=== PATIENT | male | born 1955 | race Two or more races ===

== ENCOUNTER 2022-11-24 08:14 | Inpatient (IN) | payer OTHER ==
[2022-11-24] VITALS (45 sets, daily range): BP systolic 84–160; BP diastolic 39–92; PULSE 89–114; RESP 14–39; TEMP 97.7–98.8; O2SAT 87–100
[~2022-11-24] VITALS: Ht 170.2 cm; Wt 103.1 kg
[2022-11-24] MEDS ORDERED: SODIUM BICARBONATE 8.4 % INJ 50ML VIAL IV ONE (08:40)
[2022-11-24] MEDS ORDERED: EPINEPHrine HCL 250 ML IV ONE (08:45)
[2022-11-24] MEDS ORDERED: NOREPINEPHRINE 8 MG/250ML KIT 250 ML IV ONE (08:50)
[2022-11-24] MEDS ORDERED: PANTOPRAZOLE 80 MG in SODIUM CHL 0.9% 100 ML IV ONE (09:00)
[2022-11-24] MEDS: NOREPINEPHRINE 8 MG/250ML KIT 250 ML IV SCH ×3 (09:10→16:16)
[2022-11-24] MEDS ORDERED: EPINEPHrine HCL 250 ML IV SCH (09:15)
[2022-11-24 09:18] LABS: Hematocrit 14.5 % (41.0-53.0); Mean Corpuscular Hemoglobin 29.3 pg (28.0-32.0); Mean Corpuscular Hgb Conc. 30.2 g/dL (32.0-36.0); Red Cell Distribution Width 17.2 % (11.8-14.3)
[2022-11-24 09:23] LABS: Hemoglobin 4.4 g/dL (13.5-17.5)
[2022-11-24 09:24] LABS: Basophils % (manual) 0 (0.0-2.0); Blast Cells 0; Myelocytes % 0; Promyelocytes % 0; Reactive Lymphocytes 0
[2022-11-24 09:31] LABS: Albumin 1.2 g/dL (3.4-5.0); Calcium 7.6 mg/dL (8.5-10.1); Potassium 5.2 mmol/L (3.5-5.1)
[2022-11-24 09:33] LABS: INR 1.55 (0.9-1.15); Partial Thromboplastin Time 43.9 SEC (24.5-34.5)
[2022-11-24 09:34] LABS: BUN/Creatinine Ratio 12.5 (10.0-20.0); Bilirubin, Total 0.7 mg/dL (0.2-1.0); Total Protein 5.5 g/dL (6.4-8.2)
[2022-11-24 09:45] LABS: Urine Bacteria NONE SEEN /hpf (None Seen); Urine Blood Negative /uL (Negative); Urine Mucus FEW (None Seen); Urine Specific Gravity 1.012 (1.001-1.035); Urine WBC 2 /hpf (0 - 3)
[2022-11-24] MEDS: OCTREOTIDE ACETATE 500 MCG in SODIUM CHL 0.9% 99 ML IV SCH ×2 (09:55→20:15)
[2022-11-24] MEDS ORDERED: AZITHROMYCIN 500MG/ 250ML 250 ML IV ONE (10:00)
[2022-11-24] MEDS ORDERED: PIPERACILLIN-TAZOB 3.375GM 100 ML IV ONE (10:00)
[2022-11-24] MEDS ORDERED: FUROSEMIDE 40 MG/4 ML VIAL IV ONE (10:00)
[2022-11-24] MEDS ORDERED: ALBUTEROL SULF 2.5 MG/0.5ML(0.5%) NEB SOLN NEB ONE (10:15)
[2022-11-24] MEDS ORDERED: SODIUM ZIRCONIUM CYCL 10 GM PAK PO ONE (10:15)
[2022-11-24] MEDS ORDERED: CALCIUM GLUC 1,000mg/50ml-NS 50 ML IV ONE (10:15)
[2022-11-24] MEDS ORDERED: SODIUM BICARBONATE 8.4% INJ 50ML SYRINGE IV ONE (10:15)
[2022-11-24 10:37] LABS: Lactic Acid w/Reflex 13.6 mmol/L (0.4-2.0)
[2022-11-24] MEDS ORDERED: MIDAZOLAM DRIP 50 mg/50mL 50 ML IV ONE (10:46)
[2022-11-24] MEDS: MIDAZOLAM DRIP 50 mg/50mL 50 ML IV SCH ×2 (10:50→21:49)
[2022-11-24 12:08] LABS: Band Neutrophils % (manual) 9; Eosinophils % (manual) 1 (0-7); Lymphocytes % (manual) 13 (10.0-50.0); Metamyelocytes % 1; Monocytes % (manual) 5 (0-12)
[2022-11-24] MEDS ORDERED: DEXTROSE (50%) 50ML SYRG IV PRN (13:15)
[2022-11-24] MEDS ORDERED: ONDANSETRON HCL 4 MG/2 ML VIAL IV PRN (13:15)
[2022-11-24] MEDS ORDERED: VANCOMYCIN PER PHARMACY 0 MG IV SCH (13:30)
[2022-11-24] MEDS ORDERED: VANCOMYCIN 1GM/250ML 250 ML IV ONE (13:45)
[2022-11-24 15:36] LABS: Basophils # (auto) 0.2 10 ^3/uL (0-0.2); Eosinophils # (auto) 0 10 ^3/uL (0-0.8); Mean Corpuscular Volume 89.2 fL (80.0-100.0)
[2022-11-24 15:39] LABS: Basophils % (auto) 0.6 % (0.0-2.0); Eosinophils % (auto) 0.1 % (0.0-7.0); Hematocrit 23.5 % (41.0-53.0); Hemoglobin 7.6 g/dL (13.5-17.5); Lymphocytes # (auto) 0.7 10 ^3/uL (0.4-5.4); Lymphocytes % (auto) 2.2 % (10.0-50.0); Mean Corpuscular Hemoglobin 28.7 pg (28.0-32.0); Mean Corpuscular Hgb Conc. 32.2 g/dL (32.0-36.0); Monocytes # (auto) 0.8 10 ^3/uL (0-1.3); Monocytes % (auto) 2.6 % (0.0-12.0); Neutrophils # (auto) 28.7 10 ^3/uL (1.6-8.6); Neutrophils % (auto) 94.5 % (37.0-80.0); Red Blood Cells 2.64 10^6/uL (4.5-5.90)
[2022-11-24 15:51] LABS: White Blood Cell 30.4 10^3/uL (4.4-10.8)
[2022-11-24 15:57] LABS: Albumin 1.5 g/dL (3.4-5.0); Calcium 7.4 mg/dL (8.5-10.1); Magnesium 2.4 mg/dL (1.6-2.6); Potassium 4.1 mmol/L (3.5-5.1); Potassium 4.4 mmol/L (3.5-5.1)
[2022-11-24 15:59] LABS: BUN/Creatinine Ratio 13.4 (10.0-20.0); Phosphorus 5.4 mg/dL (2.5-4.90)
[2022-11-24 16:02] LABS: Bilirubin, Total 1.5 mg/dL (0.2-1.0); Total Protein 5.5 g/dL (6.4-8.2)
[2022-11-24 16:11] LABS: Lactic Acid w/Reflex 7.5 mmol/L (0.4-2.0)
[2022-11-24 16:33] LABS: INR 1.4 (0.9-1.15)
[2022-11-24] MEDS: PHENYLEPHRINE IV 250 ML IV SCH (17:45)
[2022-11-24] MEDS: fentaNYL Drip 2500mCg/250mlNS 250 ML IV SCH (17:45)
[2022-11-24] MEDS ORDERED: fentaNYL Drip 2500mCg/250mlNS 250 ML IV ONE (17:48)
[2022-11-24] MEDS: ACCU-CHEK COMFORT CURVE STRIP VI SCH (18:00)
[2022-11-24] MEDS: InsuLIN REG 1unit/0.01ml Soln (100units/ml) SC SCH (18:00)
[2022-11-24 18:18] LABS: Hemoglobin 7.4 g/dL (13.5-17.5)
[2022-11-24 18:21] LABS: Hematocrit 22.8 % (41.0-53.0)
[2022-11-24] MEDS ORDERED: FUROSEMIDE 100 MG/10ML VIAL IV ONE (19:15)
[2022-11-24] MEDS: PANTOPRAZOLE 40mg/50ML NS AE 50 ML IV SCH (20:15)
[2022-11-24] MEDS: PIPERACILLIN-TAZOB 2.25GM 50 ML IV SCH (21:51)
[2022-11-25] VITALS (108 sets, daily range): BP systolic 86–127; BP diastolic 44–64; PULSE 72–117; RESP 13–31; TEMP 98.1–99; O2SAT 85–100
[2022-11-25] MEDS: ACCU-CHEK COMFORT CURVE STRIP VI SCH ×4 (00:06→17:24)
[2022-11-25] MEDS: PANTOPRAZOLE 40mg/50ML NS AE 50 ML IV SCH ×5 (00:08→20:49)
[2022-11-25 00:46] LABS: Hematocrit 22.2 % (41.0-53.0); Hemoglobin 7.2 g/dL (13.5-17.5)
[2022-11-25] MEDS: PHENYLEPHRINE IV 250 ML IV SCH ×3 (02:05→13:33)
[2022-11-25 04:42] LABS: Mean Corpuscular Volume 87.6 fL (80.0-100.0)
[2022-11-25 04:43] LABS: Hematocrit 26.2 % (41.0-53.0); Hemoglobin 8.8 g/dL (13.5-17.5); Mean Corpuscular Hemoglobin 29.6 pg (28.0-32.0); Mean Corpuscular Hgb Conc. 33.8 g/dL (32.0-36.0); Red Blood Cells 2.99 10^6/uL (4.5-5.90); Red Cell Distribution Width 17.4 % (11.8-14.3)
[2022-11-25 05:13] LABS: Basophils % (manual) 0 (0.0-2.0); Blast Cells 0; Eosinophils % (manual) 0 (0-7); Myelocytes % 0; Promyelocytes % 0; Reactive Lymphocytes 0
[2022-11-25 05:31] LABS: Potassium 4.5 mmol/L (3.5-5.1)
[2022-11-25 05:35] LABS: Albumin 1.4 g/dL (3.4-5.0); BUN/Creatinine Ratio 14.5 (10.0-20.0); Calcium 7.7 mg/dL (8.5-10.1)
[2022-11-25 05:37] LABS: Total Protein 5.7 g/dL (6.4-8.2)
[2022-11-25] MEDS: OCTREOTIDE ACETATE 500 MCG in SODIUM CHL 0.9% 99 ML IV SCH ×2 (05:43→13:33)
[2022-11-25] MEDS: MIDAZOLAM DRIP 50 mg/50mL 50 ML IV SCH ×4 (05:45→20:50)
[2022-11-25] MEDS: InsuLIN REG 1unit/0.01ml Soln (100units/ml) SC SCH ×4 (05:45→17:24)
[2022-11-25] MEDS ORDERED: SODIUM CHL 0.9% 1000 ML BAG XX ONE (07:00)
[2022-11-25 07:21] LABS: Band Neutrophils % (manual) 31; Lymphocytes % (manual) 1 (10.0-50.0); Monocytes % (manual) 1 (0-12)
[2022-11-25 07:22] LABS: Metamyelocytes % 1
[2022-11-25] MEDS ORDERED: VANCOMYCIN 1GM/250ML 250 ML IV ONE (09:30)
[2022-11-25] MEDS: PIPERACILLIN-TAZOB 2.25GM 50 ML IV SCH ×2 (09:46→21:54)
[2022-11-25 12:18] LABS: Hematocrit 25.6 % (41.0-53.0); Hemoglobin 8.4 g/dL (13.5-17.5)
[2022-11-25] MEDS: fentaNYL Drip 2500mCg/250mlNS 250 ML IV SCH (14:01)
[2022-11-25 18:44] LABS: Hemoglobin 8.7 g/dL (13.5-17.5)
[2022-11-25 18:47] LABS: Hematocrit 26.7 % (41.0-53.0)
[2022-11-25] MEDS ORDERED: EPOETIN ALFA-EPBX 10,000 UNIT/1ML VIAL SC ONE (21:00)
[2022-11-25] MEDS: NOREPINEPHRINE 8 MG/250ML KIT 250 ML IV SCH (21:54)
[2022-11-26] VITALS (106 sets, daily range): BP systolic 80–128; BP diastolic 40–62; PULSE 65–121; RESP 14–27; TEMP 98.1–100; O2SAT 92–100
[2022-11-26] MEDS: ACCU-CHEK COMFORT CURVE STRIP VI SCH ×4 (00:36→17:58)
[2022-11-26] MEDS: PANTOPRAZOLE 40mg/50ML NS AE 50 ML IV SCH ×5 (01:00→21:09)
[2022-11-26] MEDS: OCTREOTIDE ACETATE 500 MCG in SODIUM CHL 0.9% 99 ML IV SCH ×3 (01:59→21:09)
[2022-11-26] MEDS: PHENYLEPHRINE IV 250 ML IV SCH ×3 (03:05→19:45)
[2022-11-26] MEDS: MIDAZOLAM DRIP 50 mg/50mL 50 ML IV SCH ×4 (04:18→20:00)
[2022-11-26] MEDS: fentaNYL Drip 2500mCg/250mlNS 250 ML IV SCH ×2 (04:19→18:44)
[2022-11-26] MEDS: InsuLIN REG 1unit/0.01ml Soln (100units/ml) SC SCH ×4 (06:00→17:58)
[2022-11-26 08:22] LABS: Hematocrit 24.7 % (41.0-53.0); Hemoglobin 8.1 g/dL (13.5-17.5); Mean Corpuscular Hemoglobin 29.3 pg (28.0-32.0); Mean Corpuscular Hgb Conc. 32.8 g/dL (32.0-36.0); Mean Corpuscular Volume 89.6 fL (80.0-100.0); Red Blood Cells 2.75 10^6/uL (4.5-5.90); Red Cell Distribution Width 18.1 % (11.8-14.3); White Blood Cell 25.2 10^3/uL (4.4-10.8)
[2022-11-26 08:25] LABS: Basophils % (manual) 0 (0.0-2.0); Blast Cells 0; Metamyelocytes % 0; Myelocytes % 0; Promyelocytes % 0; Reactive Lymphocytes 0
[2022-11-26 08:39] LABS: Albumin 1.3 g/dL (3.4-5.0); Calcium 7.6 mg/dL (8.5-10.1); Potassium 4.4 mmol/L (3.5-5.1)
[2022-11-26 08:43] LABS: BUN/Creatinine Ratio 13.8 (10.0-20.0); Bilirubin, Total 0.7 mg/dL (0.2-1.0); Total Protein 5.8 g/dL (6.4-8.2)
[2022-11-26] MEDS ORDERED: VANCOMYCIN 500 MG in D5W 5% 100 ML IV ONE (09:00)
[2022-11-26] MEDS: PIPERACILLIN-TAZOB 2.25GM 50 ML IV SCH ×2 (11:44→22:19)
[2022-11-26 12:27] LABS: Band Neutrophils % (manual) 3; Eosinophils % (manual) 2 (0-7); Lymphocytes % (manual) 5 (10.0-50.0); Monocytes % (manual) 7 (0-12)
[2022-11-27] VITALS (109 sets, daily range): BP systolic 86–124; BP diastolic 43–65; PULSE 60–72; RESP 14–33; TEMP 97.6–98.6; O2SAT 99–100
[2022-11-27] MEDS: ACCU-CHEK COMFORT CURVE STRIP VI SCH ×5 (00:06→23:30)
[2022-11-27] MEDS: MIDAZOLAM DRIP 50 mg/50mL 50 ML IV SCH ×5 (01:00→21:11)
[2022-11-27] MEDS: PANTOPRAZOLE 40mg/50ML NS AE 50 ML IV SCH ×5 (01:45→20:41)
[2022-11-27] MEDS: PHENYLEPHRINE IV 250 ML IV SCH ×3 (03:29→20:24)
[2022-11-27 03:51] LABS: Hematocrit 23.5 % (41.0-53.0); Hemoglobin 7.7 g/dL (13.5-17.5); Mean Corpuscular Hemoglobin 29.4 pg (28.0-32.0); Mean Corpuscular Hgb Conc. 32.7 g/dL (32.0-36.0); Red Blood Cells 2.61 10^6/uL (4.5-5.90); Red Cell Distribution Width 17.5 % (11.8-14.3); White Blood Cell 25.3 10^3/uL (4.4-10.8)
[2022-11-27 03:53] LABS: Basophils % (manual) 0 (0.0-2.0); Blast Cells 0; Metamyelocytes % 0; Myelocytes % 0; Promyelocytes % 0; Reactive Lymphocytes 0
[2022-11-27 04:08] LABS: Albumin 1.1 g/dL (3.4-5.0); Calcium 7.4 mg/dL (8.5-10.1)
[2022-11-27 04:12] LABS: Bilirubin, Total 0.8 mg/dL (0.2-1.0); Total Protein 5.4 g/dL (6.4-8.2)
[2022-11-27 05:33] LABS: Band Neutrophils % (manual) 7; Eosinophils % (manual) 2 (0-7); Lymphocytes % (manual) 2 (10.0-50.0); Monocytes % (manual) 4 (0-12)
[2022-11-27] MEDS: NOREPINEPHRINE 8 MG/250ML KIT 250 ML IV SCH (05:44)
[2022-11-27] MEDS: InsuLIN REG 1unit/0.01ml Soln (100units/ml) SC SCH ×5 (05:45→23:33)
[2022-11-27] MEDS: OCTREOTIDE ACETATE 500 MCG in SODIUM CHL 0.9% 99 ML IV SCH ×2 (05:52→15:46)
[2022-11-27] MEDS ORDERED: VANCOMYCIN PER PHARMACY 0 MG IV SCH (07:45)
[2022-11-27] MEDS: fentaNYL Drip 2500mCg/250mlNS 250 ML IV SCH ×2 (08:42→23:29)
[2022-11-27] MEDS: CEFTRIAXONE SODIUM 2 GM in D5W 5% 100 ML IV SCH (10:57)
[2022-11-27] MEDS ORDERED: TPN PER PHARMACY 0 ML IV SCH (13:15)
[2022-11-27] MEDS ORDERED: DEXTROSE (50%) 50ML SYRG IV SCH (14:00)
[2022-11-27 14:27] LABS: Magnesium 2.4 mg/dL (1.6-2.6)
[2022-11-27] MEDS ORDERED: AMINO ACID INFUSION IN D10W 1,000 ML IV NR (20:00)
[2022-11-28] VITALS (101 sets, daily range): BP systolic 96–145; BP diastolic 46–66; PULSE 60–76; RESP 11–19; TEMP 97.5–98.6; O2SAT 99–100
[2022-11-28] MEDS: MIDAZOLAM DRIP 50 mg/50mL 50 ML IV SCH ×3 (02:15→22:43)
[2022-11-28] MEDS: OCTREOTIDE ACETATE 500 MCG in SODIUM CHL 0.9% 99 ML IV SCH ×3 (02:15→22:43)
[2022-11-28] MEDS: PANTOPRAZOLE 40mg/50ML NS AE 50 ML IV SCH ×4 (02:15→17:34)
[2022-11-28 04:15] LABS: Basophils # (auto) 0.1 10 ^3/uL (0-0.2); Eosinophils # (auto) 0.8 10 ^3/uL (0-0.8); Hemoglobin 8.3 g/dL (13.5-17.5); Lymphocytes # (auto) 0.8 10 ^3/uL (0.4-5.4); Lymphocytes % (auto) 3.8 % (10.0-50.0); Neutrophils # (auto) 19.4 10 ^3/uL (1.6-8.6)
[2022-11-28 04:17] LABS: Basophils % (auto) 0.5 % (0.0-2.0); Eosinophils % (auto) 3.5 % (0.0-7.0); Hematocrit 25.7 % (41.0-53.0); Mean Corpuscular Hemoglobin 29.4 pg (28.0-32.0); Mean Corpuscular Hgb Conc. 32.4 g/dL (32.0-36.0); Mean Corpuscular Volume 90.8 fL (80.0-100.0); Monocytes % (auto) 4.3 % (0.0-12.0); Neutrophils % (auto) 87.9 % (37.0-80.0); Red Blood Cells 2.83 10^6/uL (4.5-5.90); Red Cell Distribution Width 17.6 % (11.8-14.3)
[2022-11-28 04:25] LABS: Calcium 7.5 mg/dL (8.5-10.1); Magnesium 2.2 mg/dL (1.6-2.6); Potassium 4.1 mmol/L (3.5-5.1)
[2022-11-28 04:29] LABS: BUN/Creatinine Ratio 13.5 (10.0-20.0); Bilirubin, Total 0.8 mg/dL (0.2-1.0); Phosphorus 5.8 mg/dL (2.5-4.90); Total Protein 5.3 g/dL (6.4-8.2)
[2022-11-28] MEDS: PHENYLEPHRINE IV 250 ML IV SCH ×3 (05:05→21:30)
[2022-11-28] MEDS: InsuLIN REG 1unit/0.01ml Soln (100units/ml) SC SCH ×3 (06:00→17:33)
[2022-11-28] MEDS: ACCU-CHEK COMFORT CURVE STRIP VI SCH ×3 (06:14→17:33)
[2022-11-28] MEDS ORDERED: SODIUM CHL 0.9% 1000 ML BAG XX ONE (07:00)
[2022-11-28] MEDS: NOREPINEPHRINE 8 MG/250ML KIT 250 ML IV SCH (09:15)
[2022-11-28] MEDS: fentaNYL Drip 2500mCg/250mlNS 250 ML IV SCH (12:12)
[2022-11-28] MEDS: CEFTRIAXONE SODIUM 2 GM in D5W 5% 100 ML IV SCH (12:16)
[2022-11-28] MEDS ORDERED: VANCOMYCIN 1GM/250ML 250 ML IV SCH (16:00)
[2022-11-28] MEDS ORDERED: CATHFLO ACTIVASE (ALTEPLASE) 2 MG VIAL IV ONE (16:30)
[2022-11-28] MEDS ORDERED: TPN PER PHARMACY IV NR ×9 (20:00)
[2022-11-28] MEDS ORDERED: EPOETIN ALFA-EPBX 10,000 UNIT/1ML VIAL SC ONE (21:00)
[2022-11-29] VITALS (108 sets, daily range): BP systolic 83–140; BP diastolic 47–64; PULSE 56–75; RESP 11–24; TEMP 97.6–98; O2SAT 96–100
[2022-11-29] MEDS: PANTOPRAZOLE 40mg/50ML NS AE 50 ML IV SCH ×4 (00:29→16:25)
[2022-11-29] MEDS: ACCU-CHEK COMFORT CURVE STRIP VI SCH ×5 (00:29→23:30)
[2022-11-29] MEDS: InsuLIN REG 1unit/0.01ml Soln (100units/ml) SC SCH ×5 (00:30→23:33)
[2022-11-29] MEDS: fentaNYL Drip 2500mCg/250mlNS 250 ML IV SCH ×2 (02:14→16:34)
[2022-11-29 04:24] LABS: Basophils # (auto) 0.1 10 ^3/uL (0-0.2); Hemoglobin 7.9 g/dL (13.5-17.5); Monocytes # (auto) 0.8 10 ^3/uL (0-1.3); Monocytes % (auto) 3.9 % (0.0-12.0)
[2022-11-29 04:27] LABS: Basophils % (auto) 0.4 % (0.0-2.0); Eosinophils # (auto) 0.4 10 ^3/uL (0-0.8); Hematocrit 24.3 % (41.0-53.0); Lymphocytes # (auto) 0.8 10 ^3/uL (0.4-5.4); Lymphocytes % (auto) 3.9 % (10.0-50.0); Mean Corpuscular Hemoglobin 29.4 pg (28.0-32.0); Mean Corpuscular Hgb Conc. 32.4 g/dL (32.0-36.0); Mean Corpuscular Volume 90.8 fL (80.0-100.0); Neutrophils % (auto) 89.8 % (37.0-80.0); Red Blood Cells 2.67 10^6/uL (4.5-5.90); Red Cell Distribution Width 17.3 % (11.8-14.3); White Blood Cell 21.2 10^3/uL (4.4-10.8)
[2022-11-29 04:46] LABS: Calcium 7.4 mg/dL (8.5-10.1); Magnesium 2.1 mg/dL (1.6-2.6)
[2022-11-29 04:49] LABS: BUN/Creatinine Ratio 12.7 (10.0-20.0); Bilirubin, Total 0.7 mg/dL (0.2-1.0); Phosphorus 4.7 mg/dL (2.5-4.90); Total Protein 5.4 g/dL (6.4-8.2)
[2022-11-29] MEDS: MIDAZOLAM DRIP 50 mg/50mL 50 ML IV SCH ×4 (05:17→22:22)
[2022-11-29] MEDS: PHENYLEPHRINE IV 250 ML IV SCH ×3 (06:05→22:23)
[2022-11-29] MEDS: NOREPINEPHRINE 8 MG/250ML KIT 250 ML IV SCH ×2 (09:15→14:31)
[2022-11-29] MEDS: OCTREOTIDE ACETATE 500 MCG in SODIUM CHL 0.9% 99 ML IV SCH (09:53)
[2022-11-29] MEDS: CEFTRIAXONE SODIUM 2 GM in D5W 5% 100 ML IV SCH (10:57)
[2022-11-29] MEDS ORDERED: EPINEPHrine HCL 1 MG/10 ML SYRG ONE (15:56)
[2022-11-29] MEDS ORDERED: TPN PER PHARMACY IV NR ×9 (20:00)
[2022-11-29] MEDS: PANTOPRAZOLE 40 MG/10 ML VIAL INJ IV SCH (21:08)
[2022-11-30] VITALS (114 sets, daily range): BP systolic 82–140; BP diastolic 43–85; PULSE 50–76; RESP 10–32; TEMP 97.6–98.8; O2SAT 96–100
[2022-11-30 04:02] LABS: Basophils # (auto) 0.1 10 ^3/uL (0-0.2); Lymphocytes # (auto) 0.9 10 ^3/uL (0.4-5.4); Monocytes # (auto) 0.9 10 ^3/uL (0-1.3); Monocytes % (auto) 4.6 % (0.0-12.0); Neutrophils # (auto) 16.3 10 ^3/uL (1.6-8.6); White Blood Cell 18.7 10^3/uL (4.4-10.8)
[2022-11-30 04:05] LABS: Basophils % (auto) 0.4 % (0.0-2.0); Eosinophils # (auto) 0.6 10 ^3/uL (0-0.8); Eosinophils % (auto) 3.1 % (0.0-7.0); Hematocrit 23.1 % (41.0-53.0); Hemoglobin 7.6 g/dL (13.5-17.5); Lymphocytes % (auto) 4.7 % (10.0-50.0); Mean Corpuscular Hemoglobin 30.2 pg (28.0-32.0); Mean Corpuscular Hgb Conc. 33.2 g/dL (32.0-36.0); Mean Corpuscular Volume 91.1 fL (80.0-100.0); Neutrophils % (auto) 87.2 % (37.0-80.0); Red Blood Cells 2.53 10^6/uL (4.5-5.90); Red Cell Distribution Width 17.7 % (11.8-14.3)
[2022-11-30 04:26] LABS: BUN/Creatinine Ratio 13.2 (10.0-20.0); Calcium 7.5 mg/dL (8.5-10.1); Magnesium 2.1 mg/dL (1.6-2.6); Potassium 3.9 mmol/L (3.5-5.1)
[2022-11-30 04:29] LABS: Bilirubin, Total 0.6 mg/dL (0.2-1.0); Phosphorus 5.4 mg/dL (2.5-4.90); Total Protein 5.2 g/dL (6.4-8.2)
[2022-11-30 04:41] LABS: Albumin 0.9 g/dL (3.4-5.0)
[2022-11-30] MEDS: InsuLIN REG 1unit/0.01ml Soln (100units/ml) SC SCH ×4 (05:49→23:53)
[2022-11-30] MEDS: ACCU-CHEK COMFORT CURVE STRIP VI SCH ×4 (05:49→23:50)
[2022-11-30] MEDS: MIDAZOLAM DRIP 50 mg/50mL 50 ML IV SCH (06:06)
[2022-11-30] MEDS: fentaNYL Drip 2500mCg/250mlNS 250 ML IV SCH ×2 (06:29→20:23)
[2022-11-30] MEDS ORDERED: SODIUM CHL 0.9% 1000 ML BAG XX ONE (07:00)
[2022-11-30] MEDS: PHENYLEPHRINE IV 250 ML IV SCH ×3 (07:05→23:45)
[2022-11-30] MEDS: ALBUMIN 25% 100 ML IV SCH ×3 (08:59→23:50)
[2022-11-30] MEDS: PANTOPRAZOLE 40 MG/10 ML VIAL INJ IV SCH ×2 (08:59→22:00)
[2022-11-30] MEDS: CEFTRIAXONE SODIUM 2 GM in D5W 5% 100 ML IV SCH (08:59)
[2022-11-30 12:58] LABS: Hepatitis A Ab IgM Negative
[2022-11-30 12:59] LABS: Hepatitis B Core IgM Negative; Hepatitis C Antibody Negative (Negative)
[2022-11-30] MEDS ORDERED: VANCOMYCIN 1GM/250ML 250 ML IV ONE (16:00)
[2022-11-30] MEDS ORDERED: FAT EMULSION IV NR ×9 (20:00)
[2022-11-30] MEDS ORDERED: POTASSIUM CHLORIDE IV NR ×9 (20:00)
[2022-11-30] MEDS ORDERED: SODIUM CHLORIDE IV NR ×9 (20:00)
[2022-11-30] MEDS ORDERED: [UNRECOGNIZED DRUG - OTHER] IV NR ×9 (20:00)
[2022-11-30] MEDS ORDERED: EPOETIN ALFA-EPBX 10,000 UNIT/1ML VIAL SC ONE (21:00)
[2022-12-01] VITALS (72 sets, daily range): BP systolic 105–151; BP diastolic 51–73; PULSE 70–102; RESP 13–41; TEMP 98.4–100.8; O2SAT 93–99
[2022-12-01 04:20] LABS: Basophils # (auto) 0.1 10 ^3/uL (0-0.2); Basophils % (auto) 0.5 % (0.0-2.0); Hemoglobin 7.2 g/dL (13.5-17.5); Lymphocytes # (auto) 0.9 10 ^3/uL (0.4-5.4)
[2022-12-01 04:22] LABS: Eosinophils # (auto) 0.6 10 ^3/uL (0-0.8); Eosinophils % (auto) 3.1 % (0.0-7.0); Hematocrit 21.5 % (41.0-53.0); Lymphocytes % (auto) 5.2 % (10.0-50.0); Mean Corpuscular Hemoglobin 30.2 pg (28.0-32.0); Mean Corpuscular Hgb Conc. 33.3 g/dL (32.0-36.0); Mean Corpuscular Volume 90.7 fL (80.0-100.0); Monocytes % (auto) 5.7 % (0.0-12.0); Neutrophils # (auto) 15.2 10 ^3/uL (1.6-8.6); Neutrophils % (auto) 85.5 % (37.0-80.0); Red Blood Cells 2.37 10^6/uL (4.5-5.90); Red Cell Distribution Width 17.8 % (11.8-14.3); White Blood Cell 17.8 10^3/uL (4.4-10.8)
[2022-12-01 04:40] LABS: Potassium 3.8 mmol/L (3.5-5.1)
[2022-12-01 04:48] LABS: Albumin 1.7 g/dL (3.4-5.0); BUN/Creatinine Ratio 13.4 (10.0-20.0); Bilirubin, Total 0.8 mg/dL (0.2-1.0); Calcium 7.9 mg/dL (8.5-10.1); Magnesium 2.1 mg/dL (1.6-2.6); Phosphorus 3.9 mg/dL (2.5-4.90)
[2022-12-01] MEDS: ACCU-CHEK COMFORT CURVE STRIP VI SCH ×3 (05:51→17:35)
[2022-12-01] MEDS: InsuLIN REG 1unit/0.01ml Soln (100units/ml) SC SCH ×3 (05:52→17:44)
[2022-12-01] MEDS: PHENYLEPHRINE IV 250 ML IV SCH ×2 (08:05→13:38)
[2022-12-01] MEDS: NOREPINEPHRINE 8 MG/250ML KIT 250 ML IV SCH (09:15)
[2022-12-01] MEDS: PANTOPRAZOLE 40 MG/10 ML VIAL INJ IV SCH ×2 (09:19→22:00)
[2022-12-01] MEDS: CEFTRIAXONE SODIUM 2 GM in D5W 5% 100 ML IV SCH (09:20)
[2022-12-01] MEDS: MIDAZOLAM DRIP 50 mg/50mL 50 ML IV SCH (10:45)
[2022-12-01] MEDS ORDERED: MEROPENEM 1GM IVPB 100 ML IV SCH ×2 (14:00→14:15)
[2022-12-01] MEDS ORDERED: TPN PER PHARMACY IV NR ×9 (20:00)
[2022-12-01] MEDS ORDERED: ACETAMINOPHEN 325 MG TAB PO PRN (21:00)
[2022-12-02] VITALS (86 sets, daily range): BP systolic 122–169; BP diastolic 29–80; PULSE 66–86; RESP 15–53; TEMP 97.6–99.6; O2SAT 94–100
[2022-12-02] MEDS: ACCU-CHEK COMFORT CURVE STRIP VI SCH ×4 (00:32→18:15)
[2022-12-02] MEDS: InsuLIN REG 1unit/0.01ml Soln (100units/ml) SC SCH ×4 (00:33→18:33)
[2022-12-02] MEDS: PHENYLEPHRINE IV 250 ML IV SCH ×3 (00:45→17:25)
[2022-12-02] MEDS: fentaNYL Drip 2500mCg/250mlNS 250 ML IV SCH (01:27)
[2022-12-02 04:23] LABS: Calcium 8.1 mg/dL (8.5-10.1); Potassium 3.8 mmol/L (3.5-5.1)
[2022-12-02 04:28] LABS: Albumin 1.5 g/dL (3.4-5.0); BUN/Creatinine Ratio 14.6 (10.0-20.0); Bilirubin, Total 0.8 mg/dL (0.2-1.0); Magnesium 2.6 mg/dL (1.6-2.6); Phosphorus 3.6 mg/dL (2.5-4.90)
[2022-12-02] MEDS ORDERED: SODIUM CHL 0.9% 1000 ML BAG XX ONE (07:00)
[2022-12-02] MEDS: PANTOPRAZOLE 40 MG/10 ML VIAL INJ IV SCH ×2 (08:38→21:19)
[2022-12-02] MEDS: MEROPENEM 500MG IVPB 50 ML IV SCH ×2 (08:38→21:19)
[2022-12-02] MEDS: NOREPINEPHRINE 8 MG/250ML KIT 250 ML IV SCH (09:15)
[2022-12-02] MEDS ORDERED: LACTULOSE 20Gm/30ML SOLN PO ONE (09:30)
[2022-12-02] MEDS: MIDAZOLAM DRIP 50 mg/50mL 50 ML IV SCH (10:45)
[2022-12-02] MEDS ORDERED: ARTIFICIAL TEARS 15ml EACHEYE PRN (11:00)
[2022-12-02] MEDS ORDERED: VANCOMYCIN 500 MG in D5W 5% 100 ML IV ONE (16:15)
[2022-12-02] MEDS ORDERED: TPN PER PHARMACY IV NR ×9 (20:00)
[2022-12-02] MEDS ORDERED: EPOETIN ALFA-EPBX 10,000 UNIT/1ML VIAL SC ONE (21:00)
[2022-12-02] MEDS: BACITRACIN TOP OINT 1 UD PKG TOP SCH (21:19)
[2022-12-03] VITALS (96 sets, daily range): BP systolic 136–168; BP diastolic 62–98; PULSE 59–80; RESP 14–26; TEMP 97.5–97.8; O2SAT 95–100
[2022-12-03] MEDS: ACCU-CHEK COMFORT CURVE STRIP VI SCH ×4 (00:26→18:40)
[2022-12-03] MEDS: InsuLIN REG 1unit/0.01ml Soln (100units/ml) SC SCH ×4 (00:30→18:50)
[2022-12-03] MEDS: PHENYLEPHRINE IV 250 ML IV SCH ×3 (01:45→18:25)
[2022-12-03 05:02] LABS: Potassium 3.7 mmol/L (3.5-5.1)
[2022-12-03 05:16] LABS: Albumin 1.4 g/dL (3.4-5.0); BUN/Creatinine Ratio 14.6 (10.0-20.0); Calcium 8.3 mg/dL (8.5-10.1); Phosphorus 3.3 mg/dL (2.5-4.90)
[2022-12-03 05:22] LABS: Bilirubin, Total 0.7 mg/dL (0.2-1.0); Magnesium 2.4 mg/dL (1.6-2.6); Total Protein 6.4 g/dL (6.4-8.2)
[2022-12-03 08:15] LABS: Basophils # (auto) 0.1 10 ^3/uL (0-0.2); Hemoglobin 8.6 g/dL (13.5-17.5)
[2022-12-03 08:17] LABS: Basophils % (auto) 0.4 % (0.0-2.0); Eosinophils # (auto) 0.4 10 ^3/uL (0-0.8); Eosinophils % (auto) 1.6 % (0.0-7.0); Hematocrit 26.9 % (41.0-53.0); Lymphocytes % (auto) 4.7 % (10.0-50.0); Mean Corpuscular Hemoglobin 29.3 pg (28.0-32.0); Mean Corpuscular Hgb Conc. 32.1 g/dL (32.0-36.0); Mean Corpuscular Volume 91.4 fL (80.0-100.0); Monocytes # (auto) 1.6 10 ^3/uL (0-1.3); Neutrophils # (auto) 19.2 10 ^3/uL (1.6-8.6); Neutrophils % (auto) 86.3 % (37.0-80.0); Red Blood Cells 2.94 10^6/uL (4.5-5.90); Red Cell Distribution Width 18.9 % (11.8-14.3); White Blood Cell 22.3 10^3/uL (4.4-10.8)
[2022-12-03] MEDS: fentaNYL Drip 2500mCg/250mlNS 250 ML IV SCH (09:11)
[2022-12-03] MEDS: NOREPINEPHRINE 8 MG/250ML KIT 250 ML IV SCH (09:15)
[2022-12-03] MEDS: MEROPENEM 500MG IVPB 50 ML IV SCH ×2 (10:14→21:46)
[2022-12-03] MEDS: PANTOPRAZOLE 40 MG/10 ML VIAL INJ IV SCH ×2 (10:14→21:46)
[2022-12-03] MEDS: BACITRACIN TOP OINT 1 UD PKG TOP SCH ×2 (11:04→21:46)
[2022-12-03] MEDS ORDERED: hydrALAZINE HCL 20 MG/ML VL IV PRN (11:15)
[2022-12-03] MEDS ORDERED: TPN PER PHARMACY IV NR ×9 (20:00)
[2022-12-04] VITALS (84 sets, daily range): BP systolic 127–157; BP diastolic 63–78; PULSE 63–80; RESP 16–45; TEMP 97.5–97.8; O2SAT 85–100
[2022-12-04] MEDS: ACCU-CHEK COMFORT CURVE STRIP VI SCH ×3 (00:55→12:00)
[2022-12-04] MEDS: InsuLIN REG 1unit/0.01ml Soln (100units/ml) SC SCH ×3 (01:10→12:00)
[2022-12-04] MEDS: PHENYLEPHRINE IV 250 ML IV SCH ×2 (02:45→09:17)
[2022-12-04 07:29] LABS: Albumin 1.2 g/dL (3.4-5.0); Calcium 8.2 mg/dL (8.5-10.1); Magnesium 2.8 mg/dL (1.6-2.6); Potassium 4.8 mmol/L (3.5-5.1)
[2022-12-04 07:33] LABS: BUN/Creatinine Ratio 16.3 (10.0-20.0); Bilirubin, Total 0.7 mg/dL (0.2-1.0); Total Protein 6.3 g/dL (6.4-8.2)
[2022-12-04 07:51] LABS: Hemoglobin 9.2 g/dL (13.5-17.5)
[2022-12-04 07:52] LABS: Hematocrit 28.2 % (41.0-53.0); Mean Corpuscular Hemoglobin 29.5 pg (28.0-32.0); Mean Corpuscular Hgb Conc. 32.6 g/dL (32.0-36.0); Mean Corpuscular Volume 90.4 fL (80.0-100.0); Red Blood Cells 3.12 10^6/uL (4.5-5.90); Red Cell Distribution Width 18.9 % (11.8-14.3); White Blood Cell 21.6 10^3/uL (4.4-10.8)
[2022-12-04 07:56] LABS: Basophils % (manual) 0 (0.0-2.0); Blast Cells 0; Metamyelocytes % 0; Myelocytes % 0; Promyelocytes % 0; Reactive Lymphocytes 0
[2022-12-04 08:17] LABS: Band Neutrophils % (manual) 1; Eosinophils % (manual) 1 (0-7); Lymphocytes % (manual) 4 (10.0-50.0); Monocytes % (manual) 5 (0-12)
[2022-12-04] MEDS: NOREPINEPHRINE 8 MG/250ML KIT 250 ML IV SCH (09:15)
[2022-12-04] MEDS: PANTOPRAZOLE 40 MG/10 ML VIAL INJ IV SCH (09:16)
[2022-12-04] MEDS: BACITRACIN TOP OINT 1 UD PKG TOP SCH (09:16)
[2022-12-04] MEDS: MEROPENEM 500MG IVPB 50 ML IV SCH (09:17)
[2022-12-04] MEDS ORDERED: TPN PER PHARMACY IV NR ×7 (20:00)
[2022-12-05] MEDS ORDERED: SODIUM CHL 0.9% 1000 ML BAG XX ONE (07:00)
== END 2022-12-04 19:05 | disposition short-term general hospital (02) | DRG 870 ==
LOC: EDBD 08:14 → ER 08:14 → TELE 13:27 → ICU WEST 16:53
PROVIDERS: ADMIT Family Medicine; ATTEND Family Medicine
PROC: 5A1955Z Respiratory Ventilation, Greater than 96 Consecutive Hours (ICD-10-PCS; principal; 2022-11-24)
PROC: 0BH17EZ Insertion of Endotracheal Airway into Trachea, Via Natural or Artificial Opening (ICD-10-PCS; 2022-11-24)
PROC: 06HN33Z Insertion of Infusion Device into Left Femoral Vein, Percutaneous Approach (ICD-10-PCS; 2022-11-24)
PROC: 4A143B0 Monitoring of Venous Pressure, Central, Percutaneous Approach (ICD-10-PCS; 2022-11-24)
PROC: 30233K1 Transfusion of Nonautologous Frozen Plasma into Peripheral Vein, Percutaneous Approach (ICD-10-PCS; 2022-11-24)
PROC: 30233N1 Transfusion of Nonautologous Red Blood Cells into Peripheral Vein, Percutaneous Approach (ICD-10-PCS; 2022-11-24)
PROC: 5A12012 Performance of Cardiac Output, Single, Manual (ICD-10-PCS; 2022-11-24)
PROC: 5A1D70Z Performance of Urinary Filtration, Intermittent, Less than 6 Hours Per Day (ICD-10-PCS; 2022-11-25)
PROC: 5A1D70Z Performance of Urinary Filtration, Intermittent, Less than 6 Hours Per Day (ICD-10-PCS; 2022-11-28)
PROC: 0DB98ZX Excision of Duodenum, Via Natural or Artificial Opening Endoscopic, Diagnostic (ICD-10-PCS; 2022-11-29)
PROC: 0DB68ZX Excision of Stomach, Via Natural or Artificial Opening Endoscopic, Diagnostic (ICD-10-PCS; 2022-11-29)
PROC: 5A1D70Z Performance of Urinary Filtration, Intermittent, Less than 6 Hours Per Day (ICD-10-PCS; 2022-11-30)
PROC: 5A1D70Z Performance of Urinary Filtration, Intermittent, Less than 6 Hours Per Day (ICD-10-PCS; 2022-12-02)
DX: A41.51 Sepsis due to Escherichia coli [E. coli] (principal); E43 Unspecified severe protein-calorie malnutrition; I46.9 Cardiac arrest, cause unspecified; I50.43 Acute on chronic combined systolic (congestive) and diastolic (congestive) heart failure; N17.0 Acute kidney failure with tubular necrosis; N18.6 End stage renal disease; R65.21 Severe sepsis with septic shock; R57.8 Other shock; J15.9 Unspecified bacterial pneumonia; K25.4 Chronic or unspecified gastric ulcer with hemorrhage; J69.0 Pneumonitis due to inhalation of food and vomit; J96.01 Acute respiratory failure with hypoxia; K22.11 Ulcer of esophagus with bleeding; G92.8 Other toxic encephalopathy; K29.91 Gastroduodenitis, unspecified, with bleeding; E87.21 Acute metabolic acidosis; D62 Acute posthemorrhagic anemia; L97.929 Non-pressure chronic ulcer of unspecified part of left lower leg with unspecified severity; Z16.24 Resistance to multiple antibiotics; I13.2 Hypertensive heart and chronic kidney disease with heart failure and with stage 5 chronic kidney disease, or end stage renal disease; M86.9 Osteomyelitis, unspecified; K44.9 Diaphragmatic hernia without obstruction or gangrene; D63.1 Anemia in chronic kidney disease; E11.22 Type 2 diabetes mellitus with diabetic chronic kidney disease; E11.51 Type 2 diabetes mellitus with diabetic peripheral angiopathy without gangrene; L97.519 Non-pressure chronic ulcer of other part of right foot with unspecified severity; Z68.34 Body mass index [BMI] 34.0-34.9, adult; K21.9 Gastro-esophageal reflux disease without esophagitis; E11.621 Type 2 diabetes mellitus with foot ulcer; E78.00 Pure hypercholesterolemia, unspecified; B96.5 Pseudomonas (aeruginosa) (mallei) (pseudomallei) as the cause of diseases classified elsewhere; E11.69 Type 2 diabetes mellitus with other specified complication; E78.5 Hyperlipidemia, unspecified; E87.5 Hyperkalemia; Z79.4 Long term (current) use of insulin; Z83.3 Family history of diabetes mellitus; Z99.2 Dependence on renal dialysis; Z89.421 Acquired absence of other right toe(s)
CPT/HCPCS: 31500; 36415; 36430; 36556; 36600; 43239; 70450; 71045; 73700; 80053; 80074; 80202; 81001; 82805; 82962; 83605; 83735; 83880; 84100; 84132; 84478; 84484; 85007; 85014; 85018; 85025; 85027; 85610; 85730; 86850; 86900; 86901; 86920; 87040; 87070; 87076; 87077; 87081; 87186; 87205; 87426; 90935; 92950; 93005; 93306; 93925; 93970; 94002; 94003; 94640; 95819; 96365; 96367; 96375; 99291; C9113; G0378; J0171; J0696; J1642; J1815; J2185; J2250; J2543; J7060; J7131; P9047